=== PATIENT | male | born 1940 | race Caucasian/White ===

== ENCOUNTER → 2016-08-31 | Outpatient (CLI) | payer MEDICARE, OTHER | LOC: KOH-I 11:20 | DX: M54.2 Cervicalgia (principal); R51 Headache; W19.XXXA Unspecified fall, initial encounter; M47.812 Spondylosis without myelopathy or radiculopathy, cervical region | CPT/HCPCS: 72040 ==

== ENCOUNTER 2020-08-05 16:14 | Emergency (ER) | payer MEDICARE, OTHER ==
[~2020-08-05 16:14] MED LIST: ACCUPRIL10 MG PO; ASPIRIN CHEWABL81 MG PO; ATORVASTATIN CA20 MG PO; CLARITIN10 M2 PO; CLOPIDOGREL75 MG PO; IMDUR ER TAB 3030 MG PO; LIPITOR TAB 1010 MG PO; LOPRESSOR 25 MG25 MG PO; MYSOLINE50 MG PO; NITROGLYCERIN0.4 MG SL; PROTONIX40 M1 PO; ULTRACET TABLE1 EACH PO
[2020-08-05 18:13] LABS: HEMOGLOBIN 16.5 gm/dl (14.0-17.5); RED BLOOD COUNT 5.08 M/UL (4.20-5.50); WHITE BLOOD COUNT 6.8 K/UL (4.5-11.0)
[2020-08-05 18:45] LABS: BUN/CREATININE RATIO 20 (0-10)
== END 2020-08-05 21:12 | disposition home or self-care (01) ==
LOC: ER1 16:14
PROVIDERS: Family Medicine
DX: R05 Cough (principal); R09.89 Other specified symptoms and signs involving the circulatory and respiratory systems; I11.9 Hypertensive heart disease without heart failure; E78.5 Hyperlipidemia, unspecified; Z20.822 Contact with and (suspected) exposure to COVID-19; Z88.1 Allergy status to other antibiotic agents; F17.220 Nicotine dependence, chewing tobacco, uncomplicated
CPT/HCPCS: 0240U; 71045; 80053; 82550; 82553; 83874; 83880; 84484; 85025; 85610; 99284

== ENCOUNTER 2021-11-07 20:14 | Emergency (ER) | payer MEDICARE, OTHER ==
[2021-11-07 21:13] LABS: HEMOGLOBIN 14.2 gm/dl (14.0-17.5); RED BLOOD COUNT 4.47 M/UL (4.20-5.50); WHITE BLOOD COUNT 7.3 K/UL (4.5-11.0)
[2021-11-07 21:37] LABS: BUN/CREATININE RATIO 15 (0-10)
== END 2021-11-08 02:30 | disposition home or self-care (01) ==
LOC: ER1 20:14
PROVIDERS: Physician Assistant
DX: S30.1XXA Contusion of abdominal wall, initial encounter (principal); E78.5 Hyperlipidemia, unspecified; I10 Essential (primary) hypertension; Z87.442 Personal history of urinary calculi; W18.2XXA Fall in (into) shower or empty bathtub, initial encounter
CPT/HCPCS: 70450; 71045; 72125; 80053; 82550; 82553; 83690; 84484; 85025; 99284; J1885; Q9967